=== PATIENT | female | born 2005 | race Caucasian/White ===

== ENCOUNTER 2024-12-04 22:38 | Inpatient (IN) ==
--- NOTE | 2024-12-04 22:48 | Emergency Department Note ---
Impression & Plan Drug overdose Admission/302 ED Provider Note HPI: History obtained from patient and police report. The patient is a 19-year-old female with history of anxiety/depression, who presents the emergency department after an intentional overdose. Patient states that she was at her apartment this evening when her boyfriend broke up with her. Patient states she became very emotional. She had several alcoholic beverages and then she overdosed on her Abilify intentionally. Patient states she was trying to "hurt" herself but she was not trying to "kill myself". Patient states that she took 30 separate 5 mg tablets. On arrival here to the ED the patient is somewhat drowsy appearing but she is alert and answers all my questions appropriately. Patient states that the overdose occurred at 9 PM. Charge nurse was contacted by poison control, they were aware of the patient and recommendations were made for EKG, cardiac monitoring, supportive care and observation for 8 hours prior to medical clearance for psychiatric assessment. ROS: - Per HPI Differential Diagnosis: Drug overdose, alcohol intoxication, polysubstance abuse, acute suicidality, amongst other potential pathologies. *Outpatient medications and allergy history reviewed. PE: General: Alert HEENT: Normocephalic, trachea midline Eyes: Extraocular eye movement is intact, no scleral erythema Pulmonary: Clear to auscultation bilaterally, no wheezing Cardio: Regular rate and rhythm GI: Abdomen is soft to palpation : No suprapubic tenderness MSK: No evidence of trauma or malformation of the extremities, no edema Skin: No evidence of rash Neuro: Alert, no focal deficits Psychiatric: Cooperative INDEPENDENT INTERPRETATIONS: security monitor: (As interpreted by myself): - An order was placed for continuous cardiac monitoring - Patient was noted to be in sinus rhythm with a rate of 78 EKG: (As interpreted by myself): Rate: 81 Rhythm: Normal sinus rhythm Intervals: Within normal limits ST changes: No ST elevation Time: 2302 EKG #2: (As interpreted by myself): Rate: 76 Rhythm: Normal sinus rhythm Intervals: Within normal limits ST changes: No ST elevation Time: 0410 Interventions provided in ED: - IV fluid bolus Medical Decision Making: IV was established and lab work ordered, patient was placed on laboratory monitor. Lab work shows no leukocytosis, hemoglobin is normal, platelet count is normal, CMP does not show any evidence of any critical findings. Urinalysis does not show any evidence of infection. Urine drug screen is negative. Alcohol level is slightly elevated at 93.3. Per poison control recommendations, EKG was obtained that does not show any evidence of interval prolongation or arrhythmia. Patient was maintained here in the ED on the monitor for 8 hours after ingestion of the Abilify and she remained stable. On my reevaluation at approximately 5:15 AM the patient is alert and able to have a coherent conversation with me. Patient does admit to taking an overdose of Abilify but states she was just trying to "hurt herself". She denies that she was trying to kill herself. Patient was assessed by case management, she was determined appropriate for inpatient admission. Patient was not agreeable for 201 therefore 302 was filed and signed by myself. I do not feel at this point that the patient is safe to be discharged home as she does not display great insight into her condition and put herself at significant risk earlier this evening by overdosing on her medication. Bed search will be initiated, patient was signed out to my colleague, Dr. Ramirez, at change of shift pending bed search under 302 and ultimate disposition to inpatient psychiatric care. Consultants/Discussions held with other healthcare providers: - Case management, Nancie Titus Diagnosis: 1. Intentional drug overdose, acute 2. Alcohol intoxication, acute 3. Anxiety/depression, acute Disposition: Handoff, 302 Andrea Rodriguez DO Emergency Medicine Past Med/Surg History Problem List (Updated 12/05/24 @ 05:52 by Andrea Rodriguez DO) Drug overdose (Acute) Social History Smoking Status: Former smoker Preferred Language: [place]al[place] Feels Safe at Home: Yes Gender Identity: Female Allergies Allergies Allergy/AdvReac Type Severity Reaction Status Date / Time No Known Allergies Allergy Verified 12/05/24 05:19 Home Meds Home Medications Medication Instructions Recorded Confirmed aripiprazole 5 mg tablet (Abilify) 5 mg PO DAILY 12/05/24 12/05/24 lamotrigine 25 mg tablet (Lamictal) 75 mg PO BID 12/05/24 12/05/24 Results & Data (ED) Vital Signs Vital Signs - 24 hr 12/04/24 22:47 12/04/24 22:47 12/04/24 22:56 Temperature 36.7 C Temperature Source Oral Pulse Rate 80 Pulse Rate [Apical] 83 Pulse Rate from SpO2 Sensor Respiratory Rate 16 14 Respiratory Effort / Characteristics Non-Labored Non-Labored Respiratory Depth Normal Normal Blood Pressure 112/70 Blood Pressure [Left Arm] 112/70 Blood Pressure Mean 84 Blood Pressure Mean [Left Arm] 84 Pulse Oximetry 100 100 Oxygen Delivery Method Room Air Room Air Room Air Sepsis Recent Fever Within 48 Hours No Sepsis New/Unexplained Change in Mental Status No Sepsis Action Taken by Nursing No Action Required 12/04/24 22:56 12/04/24 23:03 12/04/24 23:15 Temperature Temperature Source Pulse Rate 87 98 H 81 Pulse Rate [Apical] Pulse Rate from SpO2 Sensor 86 82 Respiratory Rate 17 17 Respiratory Effort / Characteristics Respiratory Depth Blood Pressure 112/70 114/70 Blood Pressure [Left Arm] Blood Pressure Mean 84 82 Blood Pressure Mean [Left Arm] Pulse Oximetry 94 100 Oxygen Delivery Method Room Air Room Air Sepsis Recent Fever Within 48 Hours Sepsis New/Unexplained Change in Mental Status Sepsis Action Taken by Nursing 12/04/24 23:33 12/05/24 00:06 12/05/24 00:36 Temperature Temperature Source Pulse Rate 99 H 72 79 Pulse Rate [Apical] Pulse Rate from SpO2 Sensor 98 H 73 79 Respiratory Rate 13 17 18 Respiratory Effort / Characteristics Respiratory Depth Blood Pressure 109/66 110/68 Blood Pressure [Left Arm] Blood Pressure Mean 80 82 Blood Pressure Mean [Left Arm] Pulse Oximetry 100 100 100 Oxygen Delivery Method Room Air Room Air Room Air Sepsis Recent Fever Within 48 Hours Sepsis New/Unexplained Change in Mental Status Sepsis Action Taken by Nursing 12/05/24 01:00 12/05/24 01:27 12/05/24 02:09 Temperature Temperature Source Pulse Rate 86 85 69 Pulse Rate [Apical] Pulse Rate from SpO2 Sensor 86 86 69 Respiratory Rate 16 17 14 Respiratory Effort / Characteristics Respiratory Depth Blood Pressure 110/65 116/73 115/74 Blood Pressure [Left Arm] Blood Pressure Mean 80 87 87 Blood Pressure Mean [Left Arm] Pulse Oximetry 98 96 100 Oxygen Delivery Method Room Air Room Air Room Air Sepsis Recent Fever Within 48 Hours Sepsis New/Unexplained Change in Mental Status Sepsis Action Taken by Nursing 12/05/24 02:30 12/05/24 02:49 12/05/24 03:30 Temperature Temperature Source Pulse Rate 74 77 81 Pulse Rate [Apical] Pulse Rate from SpO2 Sensor 72 Respiratory Rate 16 16 Respiratory Effort / Characteristics Respiratory Depth Blood Pressure 105/64 113/76 Blood Pressure [Left Arm] Blood Pressure Mean 77 89 Blood Pressure Mean [Left Arm] Pulse Oximetry 100 96 Oxygen Delivery Method Room Air Room Air Sepsis Recent Fever Within 48 Hours Sepsis New/Unexplained Change in Mental Status Sepsis Action Taken by Nursing 12/05/24 05:00 Temperature Temperature Source Pulse Rate 79 Pulse Rate [Apical] Pulse Rate from SpO2 Sensor Respiratory Rate 16 Respiratory Effort / Characteristics Respiratory Depth Blood Pressure 108/74 Blood Pressure [Left Arm] Blood Pressure Mean 81 Blood Pressure Mean [Left Arm] Pulse Oximetry 98 Oxygen Delivery Method Room Air Sepsis Recent Fever Within 48 Hours Sepsis New/Unexplained Change in Mental Status Sepsis Action Taken by Nursing Laboratory Data 12/04/24 22:59 12/04/24 22:59 Lab Results 12/04/24 12/05/24 Range/Units 22:59 03:25 WBC 6.34 (4.8-10.8) K/ul RBC 4.17 L (4.20-5.40) M/uL Hgb 13.0 (12.0-16.0) g/dl Hct 37.5 (37.0-47.0) % MCV 89.9 (80.0-100.0) fL MCH 31.2 (25.0-34.0) pg MCHC 34.7 (32.0-36.0) g/dL RDW Std Deviation 42.0 (36.4-46.3) fL RDW Coeff of Jer 12.8 (11.5-14.5) % Plt Count 214 (130-400) K/uL MPV 9.6 (9.4-12.4) fL Immature Gran % (Auto) 0.5 % Neut % (Auto) 66.1 % Lymph % (Auto) 25.7 % [place] % (Auto) 6.9 % Eos % (Auto) 0.5 % Baso % (Auto) 0.3 % Neut # (Auto) 4.19 (1.40-6.50) K/uL Lymph # (Auto) 1.63 (1.20-3.40) K/uL [place] # (Auto) 0.44 (0.11-0.59) K/uL Eos # (Auto) 0.03 (0.00-0.50) K/uL Baso # (Auto) 0.02 (0.00-0.20) K/uL Immature Gran # (Auto) 0.03 (0.01-0.20) K/uL Sodium 140 (136-145) mmol/L Potassium 3.6 (3.5-5.1) mmol/L Chloride 108 H (98-107) mmol/L Carbon Dioxide 25 (21-32) mmol/L Anion Gap 7 (3-11) BUN 12 (6-23) mg/dl Creatinine 1.09 (0.6-1.2) mg/dl Est Cr Clr Drug Dosing 74.1 ml/min eGFR 74.59 BUN/Creatinine Ratio 11.0 (10-20) Glucose 83 (70-99(Fasting)) mg/dl Calcium 9.6 (8.6-10.3) mg/dl Total Bilirubin 0.4 (0.2-1.0) mg/dl AST 15 (13-39) U/L ALT 12 (7-52) U/L Alkaline Phosphatase 33 L (34-104) U/L Total Protein 7.6 (6.0-8.3) gm/dl Albumin 4.6 (3.4-5.0) gm/dl Globulin 3.0 (2.5-4.0) gm/dl Albumin/Globulin Ratio 1.5 (0.9-2) TSH 1.576 (0.300-4.500) uIu/ml Urine Color Yellow Urine Appearance Clear (Clear) Urine pH 5.5 (4.5-7.5) Ur Specific [place] 1.018 (1.000-1.030) Urine Protein Negative (Negative) Urine Glucose (UA) Negative (Negative) Urine Ketones Negative (Negative) Urine Blood Negative (Negative) Urine Nitrite Negative (Negative) Urine Bilirubin Negative (Negative) Urine Urobilinogen Negative (Negative) Ur Leukocyte Esterase Negative (Negative) Urine Comment Salicylates < 3.0 L (3.0-30) mg/dl Urine Opiates Screen Cancelled Neg Ur Methadone, Qual Cancelled Neg Urine Fentanyl Screen Cancelled Neg Acetaminophen < 3 L (10-30) ug/ml Urine Barbiturates Cancelled Neg Ur Phencyclidine (PCP) Cancelled Neg U Amphetamin/Meth Scrn Cancelled Neg MDMA (Ecstasy) Screen Cancelled Neg U Benzodiazepines Scrn Cancelled Neg Ur Cocaine Metabolite Cancelled Neg U Marijuana (THC) Screen Cancelled Neg Ethyl Alcohol mg/dL 93.3 H (<10.0) mg/dl Administered Medications Discontinued Medications Sodium Chloride (Nss) 1,000 mls @ 999 mls/hr IV .Q1H1M ONE Stop: 12/05/24 00:30 Last Infusion: 12/05/24 01:06 Dose: Infused Documented By: Admin: 12/04/24 23:47 Dose: 999 mls/hr Documented By: TROY Sodium Chloride (Nss) 1,000 mls @ 999 mls/hr IV .Q1H1M ONE Stop: 12/05/24 02:23 Last Infusion: 12/05/24 02:54 Dose: Infused Documented By: Admin: 12/05/24 01:53 Dose: 999 mls/hr Documented By: TROY Ondansetron HCl (Ondansetron Inj 2 Mg/Ml 2 Ml Vial) 4 mg IV NOW STA Stop: 12/05/24 05:15 Last Admin: 12/05/24 05:19 Dose: 4 mg Documented By: TASHI Discharge Plan Visit Data Chief Complaint: Overdose (Intentional) Stated Complaint: OVERDOSE ED Provider: Andrea Rodriguez Discharge Problem: Drug overdose Patient Disposition: Still a Patient Condition: Fair Forms Stand Alone Forms: [facility], Suicide Prevention Resources Prescriptions Prescriptions: No Action lamotrigine [Lamictal] 25 mg Tablet 75 mg PO BID aripiprazole [Abilify] 5 mg Tablet 5 mg PO DAILY Referrals Referrals: PCP,NO [Primary Care Provider] -
[2024-12-04 23:46] LABS: Hematocrit (blood only) 37.5 % (37.0-47.0); Hemoglobin 13.0 g/dl (12.0-16.0); Immature Granulocytes # (auto) 0.03 K/uL (0.01-0.20); Immature Granulocytes % (auto) 0.5 %; Mean Corpuscular Hemoglobin 31.2 pg (25.0-34.0); Mean Corpuscular Volume 89.9 fL (80.0-100.0); Platelet Count 214 K/uL (130-400); RDW Standard Deviation 42.0 fL (36.4-46.3); Red Blood Count 4.17 M/uL (4.20-5.40); White Blood Count 6.34 K/ul (4.8-10.8)
[2024-12-04] MEDS: SODIUM CHLORIDE 0.9% 1,000 ML IV ONE (23:47)
[2024-12-05 00:03] LABS: Alanine Aminotransferase 12.0 U/L (7-52); Albumin Globulin Ratio 1.5 (0.9-2); Alkaline Phosphatase 33.0 U/L (34-104); Anion Gap 7.0 (3-11); Bilirubin,Total 0.4 mg/dl (0.2-1.0); Blood Urea Nitrogen 12.0 mg/dl (6-23); Calcium 9.6 mg/dl (8.6-10.3); Carbon Dioxide 25.0 mmol/L (21-32); Chloride 108.0 mmol/L (98-107); Creatinine Clr Calc Pharmacy 74.1 ml/min; Globulin 3.0 gm/dl (2.5-4.0); Glucose 83.0 mg/dl (70-99(Fasting)); Potassium 3.6 mmol/L (3.5-5.1); Sodium 140.0 mmol/L (136-145); Total Protein 7.6 gm/dl (6.0-8.3)
[2024-12-05 00:05] LABS: Acetaminophen < 3 ug/ml (10-30); Salicylate < 3.0 mg/dl (3.0-30)
[2024-12-05 00:18] LABS: Thyroid Stimulating Hormone 1.576 uIu/ml (0.300-4.500)
[2024-12-05] MEDS: SODIUM CHLORIDE 0.9% 1,000 ML IV ONE (01:53)
[2024-12-05 03:36] LABS: Appearance Urine Clear (Clear); Glucose Urine UA Negative (Negative)
[2024-12-05 04:09] LABS: Amphetamines+Metham, Urine Neg (Neg); MDMA (Ecstacy), Urine Neg (Neg); Marijuana, Urine Neg (Neg)
[2024-12-05] MEDS: ONDANSETRON INJ 2 MG/ML 2 ML VIAL IV STA (05:19)
--- NOTE | 2024-12-05 07:14 | Emergency Department Note ---
ED Visit Note I received this patient at change of shift signout from Dr. Rodriguez. Please see his note for initial history and physical exam. The patient is a 19-year-old female who presented to the emergency department with police for mental health evaluation. The patient was medically cleared. The 302 petition was upheld. At this time bed search is currently underway. I received notification from the delegate on [facility] [address]. that the patient will be excepted on their unit for further inpatient management however they would like the patient to be held until 8 PM for continued cardiac monitoring despite what toxicology recommends. 0840: I discussed this [facility] At this time they do feel the patient is medically cleared and does not require any further cardiac monitoring. The patient was signed out to Dr. Medina at change of shift. Please see his note for continuation of care and further disposition. .
--- NOTE | 2024-12-05 13:01 | Electrocardiogram Report ---
Test Reason : Blood Pressure : */* mmHG Vent. Rate : 81 BPM Atrial Rate : 81 BPM P-R Int : 158 ms QRS Dur : 78 ms QT Int : 376 ms P-R-T Axes : 31 74 44 degrees QTcB Int : 436 ms Normal sinus rhythm Normal ECG No previous ECGs available Confirmed by Judson Araya ([id number]) on 12/05/2024 1:01:00 PM Referred By: Confirmed By: Judson Araya
--- NOTE | 2024-12-05 13:03 | Electrocardiogram Report ---
Test Reason : Blood Pressure : */* mmHG Vent. Rate : 76 BPM Atrial Rate : 76 BPM P-R Int : 164 ms QRS Dur : 76 ms QT Int : 390 ms P-R-T Axes : 49 79 48 degrees QTcB Int : 438 ms Normal sinus rhythm Septal infarct , age undetermined Abnormal ECG When compared with ECG of 04-Dec-2024 23:02, (unconfirmed) No significant change was found Confirmed by Judson Araya ([id number]) on 12/05/2024 1:03:01 PM Referred By: Confirmed By: Judson Araya
--- NOTE | 2024-12-05 14:59 | Emergency Department Note ---
ED Visit Note Patient is a 19-year-old female who presents ER following an intentional overdose on Abilify. Was seen and evaluated overnight by Dr. GARCIA. Was m edically cleared. Case has been discussed with poison control in [place] and patient is cleared from their standpoint. Referrals been made to 3 [address]. They disagree with [place] poison control and feel that the patient needs additional observation until 8 PM at which point they will reevaluate the patient. Following this the patient was rediscussed again with [place] poison control and once again they noted the patient is medically cleared. Currently awaiting [facility]. evaluation. Patient was admitted shortly after 8 PM. Patient rested comfortably while under my care with no complaints. .
[2024-12-05] MEDS ORDERED: ACETAMINOPHEN 325 MG TAB PO PRN (17:23)
[2024-12-05] MEDS ORDERED: MAGNESIUM HYDROXIDE SUSP 30 ML UDC PO PRN (17:23)
[2024-12-05] MEDS ORDERED: SODIUM CHLORIDE 0.65% NA SOLN 45 ML (OCEAN) PRN (17:23)
[2024-12-05] MEDS ORDERED: ALUMINUM/MAGNESIUM SUSP 30 ML UDC PO PRN (17:23)
[2024-12-05] MEDS ORDERED: BISMUTH SUBSALICYLATE 262 MG CHEW PO PRN (17:23)
[2024-12-06] MEDS: [UNRECOGNIZED DRUG - OTHER] PO SCH (10:27)
[2024-12-06] MEDS: lamoTRIgine 25 MG TAB PO SCH (13:02)
--- NOTE | 2024-12-06 15:11 | History & Physical ---
Date of Service December 06, 2024 Impression / Recommendations Impression EDWINA WALLACE is a 19-year-old F who currently lives with roommates, has a history of CON, depression, social anxiety, and was admitted on 12/05/24 17:23 on a 302 involuntary commitment for suicide attempt. Presentation consistent for generalized anxiety disorder, depression, cluster B personality disorder. She presented with an impulsive suicide attempt via ingestion of prescribed Abilify in the context of alcohol intoxication and relationship dispute. She denies recent or current suicidal ideations and is future oriented. No significant childhood trauma was identified. Family history of alcohol dependence and anxiety. Medication history reviewed and possible past incomplete trials of serotonin antidepressants due to intolerance of side effects. Plan to restart home lamotrigine, will wait to restart aripiprazole, will trial low-dose of sertraline given past intolerance; medication side effects and adverse effects discussed with the patient and agreeable. Would likely benefit from an intensive outpatient program. Overall, I spent a total of 80 minutes with this case including review of chart records, nursing report, review of lab work, direct evaluation of the patient at bedside, counseling the patient, multidisciplinary team meeting, orders, and documentation in the electronic health record. (1) Suicide attempt by drug overdose: (2) Generalized anxiety disorder: (3) Cluster B personality disorder: Plan 12/06/24: The patient was admitted to the [facility] ([facility] health unit) on q15 min checks (behavioral with suicide precautions) for safety. The patient will participate in group, recreational, and milieu therapies and will be offered additional individual and family sessions as clinically appropriate. -Start Sertraline 12.5mg QD -Restart home Lamotrigine 75mg BID -Hold home Aripiprazole 5mg daily -Labs: A1C, fasting lipids, Vit D, Vit B12 -Questionnaires: BPD screener, CON-7 Inventory Assets Strengths: family support, outpatient connection Needs: improved insight, intensive therapy Suicide Risk Level Suicide Risk Level: Moderate (q15 min suicide checks) Risk Factors Assessment Male: No : Yes Do You Have Access To A Gun?: No Health Problems: No Mental Health Diagnoses: Yes Substance Use Disorders: No Previous Attempt: Yes Family History of Suicide: No Previous Psychiatric Hospitalization: Yes Hopelessness: No Protective Factors Assessment Jainism Beliefs: No : No Responsible for Young Children: No Employed: No Stable Relationships: Yes Supportive Family: Yes Good Rapport with Provider: Yes Absence of Any Risk Factors Above: No Psychiatric History Identifying Data EDWINA WALLACE is a 19-year-old F who currently lives with roommates, has a history of CON, depression, social anxiety, and was admitted on 12/05/24 17:23 on a 302 involuntary commitment for suicide attempt. Chief Complaint "Impulsively took pills" History of Present Illness The patient reports being at a fraternity alliance party and was drinking. She was on the phone with her boyfriend and they were arguing. After the alliance party she went back to her apartment and was alone. On the phone her boyfriend broke up with her and she felt overwhelmed. Reports taking the the entire bottle of her prescribed Abilify 5 mg and the negative feeling. Her prescription was recently refilled. She denies suicidal intent at the time. She then texted her roommates about what she did and they arrived and then called EMS. She denies current suicidal ideation or recent suicidal ideation prior to hearing the bad news. Reports a similar incident 2 years ago after a boyfriend broke up with her and she attempted to take pills however someone stopped her. She was later hospitalized in an inpatient psychiatric facility. Reports past self-harm by cutting however denies recently. Endorses difficulty staying asleep, poor concentration and low energy. Reports fair mood, derives pleasure from a ctivities, denies excess guilt or feeling like a burden. Endorses a fear of abandonment. Denies chronic feelings of emptiness. Denies other forms of impulsivity. Denies having an alcohol or drug problem. At most will have up to 4 drinks at a night. Past diagnoses of depression, generalized anxiety disorder, social anxiety, and therapist suspicious for BPD. Past psychiatric medications include Prozac, Lexapro, Zoloft, BuSpar. Possible incomplete trials and patient was unable to tolerate headache side effect of SSRIs. Has been on lamotrigine and Abilify and finds it helpful. Past outpatient individual therapy and 1 past intensive outpatient program. Family psychiatric history significant for alcoholism in mother, maternal grandmother, maternal aunt and sister with anxiety on medica tions, and father with anger issues. [place] with supportive parents and denies emotional, physical, sexual abuse. Presents treatment goal of improving emotional regulation. 12/05/24 23:23 - Psychiatric Liason Note by Kenan Oconnor Pt alert and oriented x4. Pt has flat expression but calm and cooperative during liaison assessment. Pt confirms taking an overdose of her prescribed Abilify but is still denying this as a suicide attempt. Pt states 12/04 she was at a fraternity alliance party with her one friend/roommate. Pt states she was drinking at the alliance party. Pt was texting her boyfriend. Pt states her relationship was distant at the moment since they met in [place], where pt. is from, and she is currently enrolled at [employer]. Pt states her boyfriend broke up with her over text. Pt states she went back to her off campus apartment and took the Abilify. Pt then called another friend, saying that she overdosed. The friend then called pt's parents. Pt's parents told the friend to call EMS. Pt's parents then called Edwina. EMS brought pt to [facility] ED. Pt denies any other stressors currently. Pt states she likes her major. Pt is a giovanna studying mailroom coordinator education. Pt denies being involved with any current job. Pt states she gets along with her 4 other roommates. Pt denies SIB/HI/hallucinations/delusions. Pt states having a history of SIB. Pt states she last cut her wrists via knife approx. 2 years ago. Pt states having passive SI recently but not often (still denying overdose as suicide attempt). Pt states multiple overdoses in the past as suicide attempts. Pt states relationships are typically the trigger for her attempts. Pt states one prior inpatient psych admission in [place]. Pt states she had her first freshman semester of college there. Pt states she attempted to overdose then as well but a friend stopped her. Pt states hx of bulimia and anorexia but nothing current. Pt states having outpatient providers of [facility] for psychiatry via telehealth, Sally is her therapist (pt can't remember last name or location other than near [place]), and Dr. Donita Guerrero as her pcp in [place], [place]. Pt states being prescribed Lamictal 75mg BID, Abilify 5mg daily, and control daily. Pt states she takes her medications regularly. Pt states she drinks alcohol 1-2 per week socially on the weekends. Pt states approx. 4 drinks per occasion. Pt denies other substances including tobacco/nicotine. Pt states having issues staying asleep and has infrequent nightmares. Pt denies legal issues. ROIs signed for [facility] (psychiatry), Sally (therapy), and Ha Wallace (parents). Past Psychiatric History Current Psychiatric Diagnosis: Unspecified Depressive Disorder Do You Have Access To A Gun?: No History of Previous Suicide Attempt: Yes Allergies Allergy/AdvReac Type Severity Reaction Status Date / Time No Known Allergies Allergy Verified 12/05/24 05:19 Home Medications Medication Instructions Recorded Confirmed Type aripiprazole 5 mg tablet (Abilify) 5 mg PO DAILY 12/05/24 12/05/24 History lamotrigine 25 mg tablet (Lamictal) 75 mg PO BID 12/05/24 12/05/24 History Family History Family History of: Doesn't Know Alcohol History Hx of Alcohol Use Over the Past 12 Months: Yes (1-2x per week on weekends. Approx 4 drinks per occasion) AUDIT Total Score: 5 Smoking Use Have You Smoked or Used Tobacco Products in the Last 30 Days: No Smoking Status: Former smoker Substance History Hx of Prescription Med Misuse Over the Past 12 Months: Yes (Overdose on Abilify prior to admission) Hx of Over the Counter Med Misuse Over the Past 12 Months: No Hx of Inhalent Misuse Over the Past 12 Months: No Hx of Organic Substance Use Over the Past 12 Months: No Hx of Illegal Substances/Street Drug Use Over Past 12 Months: No Problems as a Result of Past Substance Use: None Identified Personal History Living Arrangements: Home Highest Grade Completed: Some College Highest Grade Completed Comment: Currently attending [employer] sophmore year. Marital Status: Single Beliefs That Will Affect Care: None Patient History Social History Smoking Status: Former smoker Preferred Language: Micronesian Communication Ability: Effective Taco Maker Required: No Beliefs That Will Affect Care: None Feels Safe at Home: Yes Gender Identity: Female Assistive Devices: None Physical Exam Mental Examination: Appearance: Well Groomed Eye Contact: Avoids Eye Contact Motor Behavior: Slowed Speech: Soft Mood: Depressed Affect: Flat, Sad and Withdrawn Thought Process: Intact and Linear Thought Content: Intact Hallucinations: None Insight: Poor (to limited) Judgement: Poor Vital Signs (Past 24 Hours): Last Vital Signs Temp 36.5 C 12/06/24 06:21 Pulse 89 12/06/24 06:22 Resp 16 12/06/24 06:21 BP 115/72 12/06/24 06:22 Pulse Ox 100 12/05/24 20:20 O2 Del Method Room Air 12/05/24 20:20 Exam Statement: A physical exam was performed in the ED for the purposes of medical clearance. I accept that physical as correct and adequate for the purposes of the inpatient physical exam. Results & Data ([facility]) Current Inpatient Medications Current Inpatient Medications: Current Inpatient Medications Acetaminophen (Acetaminophen 325 Mg Tab) 650 mg PO Q4H PRN PRN Reason: Headache or Minor Fever Stop: 01/04/25 17:22 Al Hydrox/Mg Hydrox/Simethicone (Aluminum/Magnesium Susp 30 Ml Udc) 30 ml PO Q4H PRN PRN Reason: GI Upset Stop: 01/04/25 17:22 Bismuth Subsalicylate (Bismuth Subsalicylate 262 Mg Chew) 2 tab PO Q30M PRN PRN Reason: Loose Stool/Diarrhea Stop: 01/04/25 17:22 Hydroxyzine HCl (Hydroxyzine Hcl 25 Mg Tab) 50 mg PO HSZ PRN PRN Reason: Insomnia Stop: 01/04/25 17:22 Hydroxyzine HCl (Hydroxyzine Hcl 25 Mg Tab) 25 mg PO Q4H PRN PRN Reason: Anxiety Stop: 01/04/25 17:22 Lamotrigine (Lamotrigine 25 Mg Tab) 50 mg PO BID MICHELLE; Protocol Stop: 01/05/25 11:59 Last Admin: 12/06/24 13:02 Dose: 50 mg Magnesium Hydroxide (Magnesium Hydroxide Susp 30 Ml Udc) 30 ml PO DAILY PRN PRN Reason: Constipation Stop: 01/04/25 17:22 Miscellaneous (Blisovi 24 Fe--Patient's Own Oral Contraceptive) 1 each PO DAILY MICHELLE Stop: 01/05/25 08:59 Last Admin: 12/06/24 10:27 Dose: 1 each Sodium Chloride (Sodium Chloride 0.65% Na Soln 45 Ml ([place])) 1 - 2 sprays NA PRN PRN PRN Reason: Nasal Dryness/Congestion Stop: 01/04/25 17:22
[2024-12-07] MEDS: lamoTRIgine 25 MG TAB PO SCH (08:38)
[2024-12-07] MEDS: SERTRALINE HCL 50 MG TABLET PO SCH (08:38)
--- NOTE | 2024-12-07 15:45 | Psychiatric Progress Note ---
Date of Service December 07, 2024 Impression / Recommendations Impression JESSICA WALLACE is a 19-year-old F who currently lives with roommates, has a history of CON, depression, social anxiety, and was admitted on 12/05/24 17:23 on a 302 involuntary commitment for suicide attempt. Presentation consistent for generalized anxiety disorder, depression, cluster B personality disorder. She presented with an impulsive suicide attempt via ingestion of prescribed Abilify in the context of alcohol intoxication and relationship dispute. A: Patient is presenting stable mood and sleep. Appears ambivalent about her recent suicide attempt. Denies current suicidal ideation presents a rational and safe plan. Encouraged patient to engage in intensive outpatient program however currently refuses. BPD screener positive for making desperate efforts to avoid feeling abandoned, distrust of others, extreme moodiness, spending excessive money, having close relationships being troubled with arguments. CON- 7 screener notable for becoming easily annoyed or irritable nearly every day in addition to often feeling nervous, being unable to stop worrying, and trouble relaxing; score of 12 indicating moderate anxiety. Plan to optimize sertraline dose today and restart existing aripiprazole 5 mg daily. Overall, I spent a total of 35 minutes with this case including review of chart records, nursing report, review of lab work, direct evaluation of the patient at bedside, counseling the patient, multidisciplinary team meeting, orders, and documentation in the electronic health record. (1) Suicide attempt by drug overdose: (2) Depression: (3) Generalized anxiety disorder: (4) Cluster B personality disorder: Plan 12/07/2024: Increase sertraline to 25 mg daily Restart aripiprazole 5 mg every evening 12/06/24: The patient was admitted to the [facility] ([facility] health unit) on q15 min checks (behavioral with suicide precautions) for safety. The patient will participate in group, recreational, and milieu therapies and will be offered additional individual and family sessions as clinically appropriate. -Start Sertraline 12.5mg QD -Restart home Lamotrigine 75mg BID -Hold home Aripiprazole 5mg daily -Labs: A1C, fasting lipids, Vit D, Vit B12 -Questionnaires: BPD screener, CON-7 Inventory Assets Strengths: family support, outpatient connection Needs: improved insight, intensive therapy Suicide Risk Level Suicide Risk Level: Moderate (q15 min suicide checks) Risk Factors Assessment Male: No : Yes Do You Have Access To A Gun?: No Health Problems: No Mental Health Diagnoses: Yes Substance Use Disorders: No Previous Attempt: Yes Family History of Suicide: No Previous Psychiatric Hospitalization: Yes Hopelessness: No Protective Factors Assessment Mormonism Beliefs: No : No Responsible for Young Children: No Employed: No Stable Relationships: Yes Supportive Family: Yes Good Rapport with Provider: Yes Absence of Any Risk Factors Above: No Interval History Identifying Information JESSICA WALLACE is a 19-year-old F who currently lives with roommates, has a history of CON, depression, social anxiety, and was admitted on 12/05/24 17:23 on a 302 involuntary commitment for suicide attempt. Chief Complaint Anxiety & Depression Review of Systems Sleep Information Total Hours of Sleep: 7 Meal Information Percent Meal Consumed - Breakfast: 100 Percent Meal Consumed - Lunch: 100 Percent Meal Consumed - Dinner: 100 Subjective Subjective Patient was seen & assessed and interval progress reviewed with treatment team nursing and social work Patient slept 7 hours. When asked about reflecting on her recent suicide attempt does not have much to tell me. Reports past intensive outpatient program called to [facility] which provided CBT and DBT and is close to [place]. She denies having recent headache or GI distress from Zoloft. Reports her mind feels less "hazy" today. Denies having overt panic symptoms or anxiety attacks. Denies SI. Physical Exam Mental Examination Appearance: Well Groomed Eye Contact: Maintains Eye Contact Motor Behavior: Unremarkable Speech: Soft Mood: Euthymic and Calm Affect: Constricted and Withdrawn Thought Process: Intact and Linear Thought Content: Intact Hallucinations: None Insight: Poor (to limited) Judgement: Poor Vital Signs (Past 24 Hours) Last Vital Signs Temp 36.9 C 12/07/24 06:25 Pulse 88 12/07/24 06:26 Resp 16 12/07/24 06:25 BP 124/76 12/07/24 06:26 Pulse Ox 100 12/05/24 20:20 O2 Del Method Room Air 12/05/24 20:20 Results & Data (U) Current Inpatient Medications Current Inpatient Medications: Current Inpatient Medications Acetaminophen (Acetaminophen 325 Mg Tab) 650 mg PO Q4H PRN PRN Reason: Headache or Minor Fever Stop: 01/04/25 17:22 Al Hydrox/Mg Hydrox/Simethicone (Aluminum/Magnesium Susp 30 Ml Udc) 30 ml PO Q4H PRN PRN Reason: GI Upset Stop: 01/04/25 17:22 Aripiprazole (Aripiprazole 5 Mg Tab) 5 mg PO QPM MICHELLE Stop: 01/06/25 20:59 Bismuth Subsalicylate (Bismuth Subsalicylate 262 Mg Chew) 2 tab PO Q30M PRN PRN Reason: Loose Stool/Diarrhea Stop: 01/04/25 17:22 Hydroxyzine HCl (Hydroxyzine Hcl 25 Mg Tab) 50 mg PO HSZ PRN PRN Reason: Insomnia Stop: 01/04/25 17:22 Hydroxyzine HCl (Hydroxyzine Hcl 25 Mg Tab) 25 mg PO Q4H PRN PRN Reason: Anxiety Stop: 01/04/25 17:22 Lamotrigine (Lamotrigine 25 Mg Tab) 75 mg PO BID MICHELLE; Protocol Stop: 01/06/25 08:59 Last Admin: 12/07/24 08:38 Dose: 75 mg Magnesium Hydroxide (Magnesium Hydroxide Susp 30 Ml Udc) 30 ml PO DAILY PRN PRN Reason: Constipation Stop: 01/04/25 17:22 Miscellaneous (Blisovi 24 Fe--Patient's Own Oral Contraceptive) 1 each PO DAILY MICHELLE Stop: 01/05/25 08:59 Last Admin: 12/07/24 08:40 Dose: 1 each Sertraline HCl (Sertraline Hcl 50 Mg Tablet) 25 mg PO QAM MICHELLE Stop: 01/07/25 08:59 Sodium Chloride (Sodium Chloride 0.65% Na Soln 45 Ml ([place])) 1 - 2 sprays NA PRN PRN PRN Reason: Nasal Dryness/Congestion Stop: 01/04/25 17:22 Mental Health & Subst Abuse Tx Psychiatrist Name of Psychiatrist: [facility] (virtual) - Dr. Tran Psychiatrist's Date Of Appointment With Psychiatric Provider: 12/29/24 Time of Appointment with Psychiatrist: 3PM Psychiatric Appointment Comment: Link will be sent to your email and phone number Therapist Name of Therapist: Sally Coy Therapist's Therapy Appointment Comment: Mother will schedule follow up appt with therapist [employer] Name of [employer]: None Post Discharge Appointments Primary Care Physician Name Of Family Doctor/PCP: [facility] Other #1: Name of Aftercare Appointment: [facility] ([facility]) Phone Number of Aftercare Appointment: [phone] Aftercare Appointment Comment: Call to self-refer if interested #2: Name of Aftercare Appointment: [facility] and Advocacy Post Hospitalization Zoom Meeting ([facility]) Phone Number of Aftercare Appointment: [phone] Date of Aftercare Appointment: 12/10/24 Time of Aftercare Appointment: 2PM Aftercare Appointment Comment: Zoom link will be sent to your [facility] email Contact Information Discharge Discharge Address: [facility] [place] [facility] [id number]
[2024-12-07] MEDS: ARIPiprazole 5 MG TAB PO SCH (20:58)
[2024-12-08 08:27] LABS: Hemoglobin A1C 4.4 % (4.5-5.6)
[2024-12-08 08:34] LABS: Cholesterol 144.0 mg/dl (0-200); HDL Cholesterol 46.0 mg/dl; Triglycerides 169.0 mg/dl (0-150)
[2024-12-08] MEDS: SERTRALINE HCL 50 MG TABLET PO SCH (08:41)
--- NOTE | 2024-12-08 09:27 | Discharge Summary ---
Date of Service December 08, 2024 History of Present Illness The patient reports being at a fraternity republican and was drinking. She was on the phone with her boyfriend and they were arguing. After the republican she went back to her apartment and was alone. On the phone her boyfriend broke up with her and she felt overwhelmed. Reports taking the the entire bottle of her prescribed Abilify 5 mg and the negative feeling. Her prescription was recently refilled. She denies suicidal intent at the time. She then texted her roommates about what she did and they arrived and then called EMS. She denies current suicidal ideation or recent suicidal ideation prior to hearing the bad news. Reports a similar incident 2 years ago after a boyfriend broke up with her and she attempted to take pills however someone stopped her. She was later hospitalized in an inpatient psychiatric facility. Reports past self-harm by cutting however denies recently. Endorses difficulty staying asleep, poor concentration and low energy. Reports fair mood, derives pleasure from activities, denies excess guilt or feeling like a burden. Endorses a fear of abandonment. Denies chronic feelings of emptiness. Denies other forms of impulsivity. Denies having an alcohol or drug problem. At most will have up to 4 drinks at a night. Past diagnoses of depression, generalized anxiety disorder, social anxiety, and therapist suspicious for BPD. Past psychiatric medications include Prozac, Lexapro, Zoloft, BuSpar. Possible incomplete trials and patient was unable to tolerate headache side effect of SSRIs. Has been on lamotrigine and Abilify and finds it helpful. Past outpatient individual therapy and 1 past intensive o utpatient program. Family psychiatric history significant for alcoholism in mother, maternal grandmother, maternal aunt and sister with anxiety on medications, and father with anger issues. [place] outside [place] with supportive parents and denies emotional, physical, sexual abuse. Presents treatment goal of improving emotional regulation. 12/05/24 23:23 - Psychiatric Liason Note by Kenan Oconnor Pt alert and oriented x4. Pt has flat expression but calm and cooperative during liaison assessment. Pt confirms taking an overdose of her prescribed Abilify but is still denying this as a suicide attempt. Pt states 12/04 she was at a fraternity republican with her one friend/roommate. Pt states she was drinking at the republican. Pt was texting her boyfriend. Pt states her relationship was distant at the moment since they met in [place], where pt. is from, and she is currently enrolled at [employer]. Pt states her boyfriend broke up with her over text. Pt states she went back to her off campus apartment and took the Abilify. Pt then called another friend, saying that she overdosed. The friend then called pt's parents. Pt's parents told the friend to call EMS. Pt's parents then called Edwina. EMS brought pt to [facility]. Pt denies any other stressors currently. Pt states she likes her major. 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 Pt denies being involved with any current job. Pt states she gets along with her 4 other roommates. Pt denies SIB/HI/hallucinations/delusions. Pt states having a history of SIB. Pt states she last cut her wrists via knife approx. 2 years ago. Pt states having passive SI recently but not often (still denying overdose as suicide attempt). Pt states multiple overdoses in the past as suicide attempts. Pt states relationships are typically the trigger for her attempts. Pt states one prior inpatient psych admission in [place]. Pt states she had her first freshman semester of college there. Pt states she attempted to overdose then as well but a friend stopped her. Pt states hx of bulimia and anorexia but nothing current. Pt states having outpatient providers of [facility] for psychiatry via telehealth, Sally is her therapist (pt can't remember last name or location other than near [place]), and Dr. Donita Guerrero as her pcp in [place], [place]. Pt states being prescribed Lamictal 75mg BID, Abilify 5mg daily, and control daily. Pt states she takes her medications regularly. Pt states she drinks alcohol 1-2 per week socially on the weekends. Pt states approx. 4 drinks per occasion. Pt denies other substances including tobacco/nicotine. Pt states having issues staying asleep and has infrequent nightmares. Pt denies legal issues. ROIs signed for [facility] (psychiatry), Sally (therapy), and Ha Valenzuela (parents). Physical Exam Mental Examination Appearance: Well Groomed Eye Contact: Maintains Eye Contact Motor Behavior: Unremarkable Speech: Soft Mood: Euthymic and Calm Affect: Constricted and Withdrawn Thought Process: Intact and Linear Thought Content: Intact Hallucinations: None Insight: Poor (to limited) Judgement: Poor Vital Signs (Past 24 Hours) Last Vital Signs Temp 36.9 C 12/08/24 06:22 Pulse 97 H 12/08/24 06:23 Resp 16 12/08/24 06:22 BP 123/73 12/08/24 06:23 Pulse Ox 100 12/05/24 20:20 O2 Del Method Room Air 12/05/24 20:20 Principal Diagnosis Cluster B Personality Disorder Psychiatric Data See daily stay summary. In short, safety was maintained and the patient was cooperative with care. Medication changes included starting Sertraline 50mg daily and they tolerated this well. A family session was held and safety plan was completed prior to discharge. The patient presented with an impulsive ingestion of prescribed abilify while intoxicated and breaking up with her boyfriend on the phone. Denies prior or current suicidal ideation and regrets her choice. History of past impulsivity with a similar scenario in the past. She presented stable sleep, moods, and behaviors on the unit. Tolerated Sertraline well. Recommended IOP to work on emotional regulation however pt denied and will consider at a later time. Discharged in a positive state with bright and reactive affect; denial of SI; future oriented. Day of Discharge Assessment Today the patient voices readiness for discharge. They note improvement in mood and deny thoughts to harm self or others. Thoughts remain organized and they are improved from admission. There is no evidence of psychosis. They agree to take mediations as prescribed and keep follow-up appointments. They are stable for discharge to outpatient level of care. The patient's AUDIT score suggests problematic drinking (Zone III WHO). Brief intervention was offered and accepted. Intervention was greater than 5 min in length and included assessing readiness to quit, advice on how to reduce or abstain from alcohol, and to set a specific goal for this hospitalization. layout worker will also assist in anticipating barriers to sobriety and in problem-solving for solutions to those problems while arranging for referral to appropriate treatment. The patient is in contemplation stage with regards to transtheoretical model of change. The patient is advised to decrease alcohol consumption due to depressant effects and risk of interaction with prescription medications. The patient agreed to limit alcohol drinks to 2 per day and will be provided with recovery materials to continue to educate self on how to cope with their condition without drinking. Overall, I spent a total of 35 minutes with this case including review of chart records, nursing report, review of lab work, direct evaluation of the patient at bedside, counseling the patient, multidisciplinary team meeting, orders, and documentation in the electronic health record. Transition of Care Transition Of Care Record: was reviewed with the patient Advance Directives Advance Directives Information Provided: Yes Advance Directives: No Mental Health Advance Directive: No Advance Directives on File: No Living Will: No Power of Manager Reading: No Advance Directives Reason:: Declines as Mental Health Visit. Risk Factors Assessment Male: No : Yes Do You Have Access To A Gun?: No Health Problems: No Mental Health Diagnoses: Yes Substance Use Disorders: No Previous Attempt: Yes Family History of Suicide: No Previous Psychiatric Hospitalization: Yes Hopelessness: No Protective Factors Assessment Confucianism Beliefs: No : No Responsible for Young Children: No Employed: No Stable Relationships: Yes Supportive Family: Yes Good Rapport with Provider: Yes Absence of Any Risk Factors Above: No Discharge Data Lab Results 12/04/24 12/05/24 12/05/24 22:59 03:25 06:16 WBC 6.34 RBC 4.17 L Hgb 13.0 Hct 37.5 MCV 89.9 MCH 31.2 MCHC 34.7 RDW Std Deviation 42.0 RDW Coeff of Jer 12.8 Plt Count 214 MPV 9.6 Immature Gran % (Auto) 0.5 Neut % (Auto) 66.1 Lymph % (Auto) 25.7 [place] % (Auto) 6.9 Eos % (Auto) 0.5 Baso % (Auto) 0.3 Neut # (Auto) 4.19 Lymph # (Auto) 1.63 [place] # (Auto) 0.44 Eos # (Auto) 0.03 Baso # (Auto) 0.02 Immature Gran # (Auto) 0.03 Sodium 140 Potassium 3.6 Chloride 108 H Carbon Dioxide 25 Anion Gap 7 BUN 12 Creatinine 1.09 Est Cr Clr Drug Dosing 74.1 eGFR 74.59 BUN/Creatinine Ratio 11.0 Glucose 83 Estimat Average Glucose Hemoglobin A1c Calcium 9.6 Total Bilirubin 0.4 AST 15 ALT 12 Alkaline Phosphatase 33 L Total Protein 7.6 Albumin 4.6 Globulin 3.0 Albumin/Globulin Ratio 1.5 Triglycerides Cholesterol LDL Cholesterol, Calc VLDL Cholesterol, Calc HDL Cholesterol Cholesterol/HDL Ratio Vitamin B12 25-OH Vitamin D Total TSH 1.576 Urine Color Yellow Urine Appearance Clear Urine pH 5.5 Ur Specific [place] 1.018 Urine Protein Negative Urine Glucose (UA) Negative Urine Ketones Negative Urine Blood Negative Urine Nitrite Negative Urine Bilirubin Negative Urine Urobilinogen Negative Ur Leukocyte Esterase Negative Urine Comment Salicylates < 3.0 L Urine Opiates Screen Cancelled Neg Ur Methadone, Qual Cancelled Neg Urine Fentanyl Screen Cancelled Neg Acetaminophen < 3 L Urine Barbiturates Cancelled Neg Ur Phencyclidine (PCP) Cancelled Neg U Amphetamin/Meth Scrn Cancelled Neg MDMA (Ecstasy) Screen Cancelled Neg U Benzodiazepines Scrn Cancelled Neg Ur Cocaine Metabolite Cancelled Neg U Marijuana (THC) Screen Cancelled Neg Ethyl Alcohol mg/dL 93.3 H SARS-CoV-2, RNA, NAAT NEGATIVE 12/08/24 07:49 WBC RBC Hgb Hct MCV MCH MCHC RDW Std Deviation RDW Coeff of Jer Plt Count MPV Immature Gran % (Auto) Neut % (Auto) Lymph % (Auto) [place] % (Auto) Eos % (Auto) Baso % (Auto) Neut # (Auto) Lymph # (Auto) [place] # (Auto) Eos # (Auto) Baso # (Auto) Immature Gran # (Auto) Sodium Potassium Chloride Carbon Dioxide Anion Gap BUN Creatinine Est Cr Clr Drug Dosing eGFR BUN/Creatinine Ratio Glucose Estimat Average Glucose 80 Hemoglobin A1c 4.4 L Calcium Total Bilirubin AST ALT Alkaline Phosphatase Total Protein Albumin Globulin Albumin/Globulin Ratio Triglycerides 169 H Cholesterol 144 LDL Cholesterol, Calc 64 VLDL Cholesterol, Calc 34 H HDL Cholesterol 46 Cholesterol/HDL Ratio 3.1 Vitamin B12 203 25-OH Vitamin D Total 33.7 TSH Urine Color Urine Appearance Urine pH Ur Specific [place] Urine Protein Urine Glucose (UA) Urine Ketones Urine Blood Urine Nitrite Urine Bilirubin Urine Urobilinogen Ur Leukocyte Esterase Urine Comment Salicylates Urine Opiates Screen Ur Methadone, Qual Urine Fentanyl Screen Acetaminophen Urine Barbiturates Ur Phencyclidine (PCP) U Amphetamin/Meth Scrn MDMA (Ecstasy) Screen U Benzodiazepines Scrn Ur Cocaine Metabolite U Marijuana (THC) Screen Ethyl Alcohol mg/dL SARS-CoV-2, RNA, NAAT Hospital Course (1) Suicide attempt by drug overdose: (2) Depression: (3) Generalized anxiety disorder: (4) Cluster B personality disorder: Plan 12/07/2024: Increase sertraline to 25 mg daily Restart aripiprazole 5 mg every evening 12/06/24: The patient was admitted to the [facility] ([facility]) on q15 min checks (behavioral with suicide precautions) for safety. The patient will participate in group, recreational, and milieu therapies and will be offered additional individual and family sessions as clinically appropriate. -Start Sertraline 12.5mg QD -Restart home Lamotrigine 75mg BID -Hold home Aripiprazole 5mg daily -Labs: A1C, fasting lipids, Vit D, Vit B12 -Questionnaires: BPD screener, CON-7 Mental Health & Subst Abuse Tx Psychiatrist Name of Psychiatrist: [facility] (virtual) - Dr. Tran Psychiatrist's Date Of Appointment With Psychiatric Provider: 12/29/24 Time of Appointment with Psychiatrist: 3PM Psychiatric Appointment Comment: Link will be sent to your email and phone number Therapist Name of Therapist: Sally Coy Therapist's Therapy Appointment Comment: Mother will schedule follow up appt with therapist Mainstreaming Facilitator Name of Mainstreaming Facilitator: None Post Discharge Appointments Primary Care Physician Name Of Family Doctor/PCP: JORDIN Other #1: Name of Aftercare Appointment: [facility] (Virtual) Phone Number of Aftercare Appointment: [phone] Aftercare Appointment Comment: Call to self-refer if interested #2: Name of Aftercare Appointment: Student Care and Advocacy Post Hospitalization Zoom Meeting ([facility]) Phone Number of Aftercare Appointment: [phone] Date of Aftercare Appointment: 12/10/24 Time of Aftercare Appointment: 2PM Aftercare Appointment Comment: Zoom link will be sent to your [facility] email Contact Information Discharge Discharge Address: [address] [place] [id number] Discharge Plan Discharge Items Patient Disposition: Home - Self-Care Reason For Visit: UNSPECIFIED DEPRESSIVE DISORDER Discharge Diagnosis: Generalized Anxiety Disorder Cluster B Personality Disorder Depression Condition on Discharge: Fair Activity: Resume your previous activity Non-emergency contact: Primary Care Provider and Therapist Call non-emergency contact if: you have any medication questions and your symptoms worsen Follow-up/Referrals: PCP,NO [Primary Care Provider] - Diet: Regular Addtl Attending Provider Instructions: Take Sertraline (Zoloft) 50mg daily. If unable to tolerate due to headaches or GI upset, take only 25mg daily for 1 week then move to 50mg daily Continue Lamotrigine 75mg twice daily Continue Aripiprazole 5mg nightly Consider an intensive outpatient program or weekly therapy. Focus on DBT skills. DBT self help books are available for purchase online. Limit alcohol intake Pending Studies at Discharge: No Stand-Alone Forms: [employer], Smoking Cessation Medications and DC Order Prescriptions: New aripiprazole [Abilify] 5 mg Tablet 5 mg PO QPM Qty: 30 0RF sertraline 25 mg tablet 50 mg PO QAM Qty: 60 0RF Continued lamotrigine [Lamictal] 25 mg Tablet 75 mg PO BID Discontinued aripiprazole [Abilify] 5 mg Tablet 5 mg PO DAILY Discharge Orders: Discharge Order (Routine); Ordered 12/08/24 Ordered By: Rey Carver Admission Data Admit Date/Time: 12/05/24 17:23 Attending Provider: Rey Carver Admit Provider: Rey Carver Primary Care Provider: PCPTERESA C[place] [address] D/C day mgmt > 30 min Patient Type Established History Expanded Problem Focused Exam Expanded Problem Focused Medical Decision Making Moderate Complexity Diagnoses Suicide attempt by drug overdose T50.902A Depression F32.A Generalized anxiety disorder F41.1 Cluster B personality disorder F60.89
== END 2024-12-08 09:58 | disposition home or self-care (01) | DRG 883 ==
LOC: ED 22:38 → 3S 12-05 17:23